=== PATIENT | male | born 2005 | race Hispanic/Latino ===

== ENCOUNTER 2024-06-02 20:51 | Day surgery (SDC) | payer OTHER ==
[~2024-06-02] VITALS: Ht 177.8 cm; Wt 101.3 kg
[2024-06-02 21:28] LABS: BASO % 0.2 % (0.0-1.0); EOS # 0.1 10^3/uL (0.0-0.5); EOS % 1.1 % (0.0-3.0); HEMOGLOBIN 16.1 g/dl (13.5-17.5); LYMPH # 1.1 10^3/uL (1.5-5.0); LYMPH % 9.3 % (24.0-44.0); MEAN CORPUSCULAR HEMOGLOBIN 29.3 pg (27.0-33.0); MEAN CORPUSCULAR HGB CONC 34.3 g/dl (32.0-36.5); MEAN CORPUSCULAR VOLUME 85.5 fl (80.0-96.0); MONO # 0.8 10^3/uL (0.0-0.8); MONO % 6.5 % (2.0-8.0); NEUTROPHILS # 10.1 10^3/uL (1.5-8.5); NEUTROPHILS % 82.7 % (36.0-66.0); PLATELET COUNT, AUTOMATED 216 10^3/uL (150-450); WHITE BLOOD COUNT 12.2 10^3/uL (4.0-10.0)
[2024-06-02 21:55] LABS: LIPASE 29 U/L (12-53)
[2024-06-02 21:56] LABS: ALBUMIN 3.9 G/DL (3.2-5.2); ALKALINE PHOSPHATASE 65 U/L (40-129); ALT/SGPT 81 U/L (7.0-40); AST/SGOT 41 U/L (<34); BILIRUBIN,DIRECT 0.2 MG/DL (<0.4); BILIRUBIN,TOTAL 0.6 MG/DL (0.3-1.2); BLOOD UREA NITROGEN 11 MG/DL (9-23); CALCIUM LEVEL 9.3 MG/DL (8.5-10.1); CARBON DIOXIDE LEVEL 28 MMOL/L (20-31); CHLORIDE LEVEL 103 MMOL/L (98-107); CREATININE FOR GFR 0.87 MG/DL (0.70-1.30); GLOMERULAR FILTRATION RATE > 60.0 (>60); GLUCOSE, FASTING 96 MG/DL (60-100); POTASSIUM SERUM 4.3 MMOL/L (3.5-5.1); SODIUM LEVEL 141 MMOL/L (136-145); TOTAL PROTEIN 7.2 G/DL (5.7-8.2)
[2024-06-02] MEDS: NS (Normal Saline) 0.9% 1,000 ML IV SCH (23:04)
[2024-06-02] MEDS: ONDANSETRON 4MG 2ML VIAL IV ONE (23:05)
[2024-06-02] MEDS: MORPHINE 2 MG/ML 1ML VIAL IV ONE (23:05)
[2024-06-03] VITALS (9 sets, daily range): BP systolic 109–127; BP diastolic 57–73; TEMP 97.7–98.3; O2SAT 94–98
[2024-06-03] MEDS: PIPERACILLIN/TAZOBACTAM SOD 4.5 GM in DEXTROSE 5% (D5W) ADV/MINI-BAG 50 ML IV ONE (00:05)
[2024-06-03 00:40] LABS: INR 1.06; PROTHROMBIN TIME 14.1 SECONDS (12.5-14.5)
[2024-06-03] MEDS ORDERED: fentaNYL 100 MCG/2 ML INJECTION As Ordered ONE (01:06)
[2024-06-03] MEDS ORDERED: MIDAZOLAM INJ 2MG/2ML VIAL As Ordered ONE (01:07)
[2024-06-03] MEDS ORDERED: LIDOCAINE 2% 100MG/5ML SDV (FOR ANES.) As Ordered ONE (01:09)
[2024-06-03] MEDS ORDERED: ROCURONIUM BROMIDE 50MG/5ML VIAL As Ordered ONE (01:09)
[2024-06-03] MEDS ORDERED: NYQUIL PO (01:17)
[2024-06-03] MEDS ORDERED: HOME MED LIST COMPLETE! XX SCH (01:20)
[2024-06-03] MEDS ORDERED: SUGAMMADEX SODIUM 500 MG/5 ML VIAL (BRIDION) As Ordered ONE (01:26)
[2024-06-03] MEDS ORDERED: MORPHINE 4 MG/ML 1ML VIAL IV PRN (02:40)
[2024-06-03] MEDS ORDERED: MORPHINE 2 MG/ML 1ML VIAL IV PRN ×2 (02:40)
[2024-06-03] MEDS ORDERED: PERCOCET 5MG/325MG TAB PO PRN ×2 (02:50→12:35)
[2024-06-03] MEDS ORDERED: METOCLOPRAMIDE INJ 10MG/2ML VIAL IV PRN (02:50)
[2024-06-03] MEDS ORDERED: HYDROMORPHONE HCL 0.5 MG/ 0.5 ML SYRINGE IV PRN (02:50)
[2024-06-03] MEDS ORDERED: ONDANSETRON 4MG 2ML VIAL IV PRN ×2 (02:50→05:00)
[2024-06-03] MEDS ORDERED: fentaNYL 100 MCG/2 ML INJECTION IV PRN (02:50)
[2024-06-03] MEDS: NS (Normal Saline) 0.9% 1,000 ML IV SCH (03:30)
[2024-06-03] MEDS: KETOROLAC 30 MG/ML 1ML VIAL IV SCH (03:30)
[2024-06-03] MEDS: PIPERACILLIN/TAZOBACTAM SOD 3.375 GM in DEXTROSE 5% (D5W) ADV/MINI-BAG 50 ML IV SCH (05:15)
[2024-06-03] MEDS: PANTOPRAZOLE 40MG VIAL IV SCH (09:14)
[2024-06-03] MEDS ORDERED: ACETAMINOPHEN 325 MG TAB PO PRN (12:35)
[2024-06-03] MEDS: PERCOCET 5MG/325MG TAB PO PRN (12:59)
[2024-06-04] VITALS: BP 132/58; TEMP 98; O2SAT 96
[2024-06-04 04:00] VITALS: BP 109/50; TEMP 98.4; O2SAT 98
[2024-06-04 08:00] VITALS: BP 115/56; TEMP 97.7; O2SAT 97
[2024-06-04] MEDS ORDERED: PERCOCET PO (10:20)
[2024-06-04] MEDS ORDERED: IBUP1TAB6 PO (10:20)
[2024-06-04] MEDS ORDERED: IBUP1TAB7 PO (10:54)
[2024-06-04 11:31] VITALS: O2SAT 98
== END 2024-06-04 12:02 | disposition home or self-care (01) ==
LOC: M ED 20:51 → EDBEDREQSVC 23:57 → EDBEDREQTM 23:57 → M ED 06-03 01:41 → M SDC 06-03 02:37 → UNDOADMOB 06-03 03:19 → M MSPAV 06-03 03:19 → UNDODISOB 06-04 12:02 → M SDC 06-04 12:02
PROVIDERS: ATTEND Surgery
DX: K35.890 Other acute appendicitis without perforation or gangrene (principal); F17.200 Nicotine dependence, unspecified, uncomplicated
CPT/HCPCS: 36415; 44970; 74176; 80048; 80076; 83690; 85025; 85610; 88304; 93041; 96365; 96366; 96375; 96376; 99285; J0665; J1885; J2250; J2405; J2470; J2543; J3010